=== PATIENT | female | born 1970 | race Caucasian/White ===

== ENCOUNTER 2020-06-04 21:47 | Emergency (ER) | payer OTHER, MEDICAID, SELFPAY ==
[2020-06-04 22:03] VITALS: BP 137/85; PULSE 77; RESP 15; TEMP 36.9; O2SAT 99; BMI 44.6
--- NOTE | 2020-06-04 22:07 | ED_ITS ---
HPI - Skin/Abscess/Foreign Bdy General Chief complaint: Skin/Abscess/Foreign Body Stated complaint: thinks stung by something left upper arm Time Seen by Provider: 06/04/20 22:01 Source: patient Mode of arrival: Ambulatory Limitations: no limitations History of Present Illness HPI narrative: 50-year-old female here for evaluation of which she thinks is a insect sting to the back of her left upper extremity.. Patient states that earlier this evening she was leaving her bathroom when she felt what she thought was a insect sting to the back of her left upper extremity. Since that time she has developed a fairly large area of irritation and redness that is itching of both tender to touch. She has not have any problems breathing. No nausea vomiting. Has never had a reaction like this in the past to any sort of insect sting. Has not tried anything for the symptoms prior to arrival. Related Data Allergies Allergy/AdvReac Type Severity Reaction Status Date / Time latex Allergy Verified 06/04/20 22:14 peanut Allergy Verified 06/04/20 22:14 Sulfa (Sulfonamide AdvReac Diarrhea Verified 06/04/20 22:14 Antibiotics) Review of Systems Constitutional Constitutional: Denies fever(s) and Denies headache(s) ENT Ears, Nose, Mouth, and Throat: Denies headache(s), Denies lip swelling, Denies sinus pressure, Denies sore throat, Denies throat swelling and Denies tongue swelling Cardiovascular Cardiovascular: Denies chest pain and Denies dyspnea Respiratory Respiratory: Denies dyspnea and Denies wheezing Integumentary/Breasts Skin/Breast: Reports pruritus, Reports lesions and Reports skin swelling Neurologic Neurologic: Denies behavioral changes and Denies headache(s) Psychiatric Psychiatric: Denies behavioral changes Hematologic/Lymphatic Hematologic/Lymphatic: Denies easy bleeding and Denies easy bruising Allergic/Immunologic Allergic/Immunologic: Reports urticaria, Denies lip swelling, Denies throat swelling, Denies tongue swelling and Denies wheezing Patient History Medical History (Updated 06/05/20 @ 04:49 by Damian Clemens DO) Asthma (Acute) Healthy adult (Acute) Social History Smoking Status: Never smoker Exam Initial Vital Signs Initial Vital Signs: Vital Signs Temperature 98.5 F 06/04/20 22:03 Pulse Rate 77 06/04/20 22:03 Respiratory Rate 15 06/04/20 22:03 Blood Pressure 137/85 06/04/20 22:03 Pulse Oximetry 99 06/04/20 22:03 Const General: cooperative and comfortable Limitations: mental status not altered HENMT Head: normal to inspection and normocephalic Resp Effort & Inspection: normal respiratory effort Auscultation: clear to auscultation bilaterally Cardio Rate: regular rate Rhythm: regular rhythm Skin Other: Patient with a hand size area of what appears to be a single urticaria on the posterior aspect of her left upper arm. There is minimal surrounding er ythema this area. There are no open wounds noted. Neuro General: patient alert, patient awake and patient oriented x3 Course Orders Ordered: Discontinued Medications Dexamethasone (Decadron) 16 mg PO NOW ONE Stop: 06/04/20 22:08 Last Admin: 06/04/20 22:15 Dose: 16 mg Documented by: CHITRA Diphenhydramine HCl (Benadryl) 25 mg PO NOW ONE Stop: 06/04/20 22:08 Last Admin: 06/04/20 22:16 Dose: 25 mg Documented by: CHITRA Vital Signs Vital signs: Vital Signs - 8 hr 06/04/20 22:03 06/04/20 22:39 Temperature 98.5 F Pulse Rate 77 74 Respiratory Rate 15 16 Blood Pressure 137/85 117/67 Pulse Oximetry 99 98 MDM - Skin/Abscess/Foreign Bdy MDM Narrative Medical decision making narrative: Patient's physical exam is consistent with an allergic reaction that is most likely from an insect given the appearance. Does appear to be 1 single large urticaria. There was low concern for infection. There is also low concern for anaphylaxis. Did discuss this with the patient. We will symptomatically treat for now. Feel patient be safely discharged home. I discussed all this with the patient and her who is at bedside. They were given return precautions. They expressed understanding and agreement. Discharge Plan Departure Patient Disposition: Home Clinical Impression: Urticaria Discharge Date/Time: 06/04/20 22:42 Instructions: DI for General Allergic Reactions Activity Restrictions/Additional Instructions: You can purchase topical anti-itch cream and/or topical steroid cream o [id number] and use over the affected area. You can also take Benadryl by mouth as needed. Return to the emergency department for any new or worsening symptoms
[2020-06-04] MEDS: dexAMETHasone 4 MG TABLET 16 MG PO (22:15)
[2020-06-04] MEDS: diphenhydrAMINE 25 MG TABLET PO (22:16)
[2020-06-04 22:39] VITALS: BP 117/67; PULSE 74; RESP 16; O2SAT 98
== END 2020-06-04 22:42 | disposition home or self-care (01) ==
PROVIDERS: Emergency Provider Emergency Medicine
DX: L50.9 Urticaria, unspecified (principal)
CPT/HCPCS: 99282; 99283

== ENCOUNTER 2021-06-27 18:06 | Emergency (ER) | payer OTHER, MEDICAID, SELFPAY ==
[2021-06-27 18:16] VITALS: BP 147/75; PULSE 62; RESP 16; TEMP 36.7; O2SAT 98
--- NOTE | 2021-06-27 18:19 | DI.RAD.S_ITS ---
PROCEDURE: XR KNEE LT 3V INDICATIONS: left knee, pain with weight bearing. Ramona a pop last night TECHNIQUE: 3 views of the knee were acquired. COMPARISON: None. FINDINGS: Bones: No fractures or dislocations. No suspicious bony lesions. There are mild tricompartmental degenerative changes. Soft tissues: No joint effusion. No suspicious soft tissue calcifications. IMPRESSION: Mild tricompartmental degenerative changes. No acute abnormality of the left knee. Dictated by: Caesar Pacheco M.D. on 06/27/2021 at 18:53 Approved by: Caesar Pacheco M.D. on 06/27/2021 at 18:54
[2021-06-27 21:41] VITALS: BP 168/77; PULSE 89; RESP 20; O2SAT 97
--- NOTE | 2021-06-27 22:47 | ED.LOWEXIN ---
HPI - Extremity Injury (Lower) General Chief Complaint: Extremity Injury, Lower Stated Complaint: Left Knee Pain/Burning Time Seen by Provider: 06/27/21 20:27 Mode of arrival: Ambulatory History of Present Illness HPI Narrative: 51-year-old female nonsmoker with noncontributory medical history presents with a chief complaint of left knee pain suffered with a bending, twisting injury 2 days ago. She felt a pop on her medial joint line and now has pain with ambulation and improvement with rest. She denies any numbness, tingling or weakness but does state that when she ambulates she feels like her knee is unsteady. She denies any history of left knee injury though she has injured her right knee. She has had no chest pain or shortness of breath. She denies any abdominal pain or nausea or vomiting. She has no hip or ankle pain Related Data Allergies Allergy/AdvReac Type Severity Reaction Status Date / Time latex Allergy Verified 06/04/20 22:14 peanut Allergy Verified 06/04/20 22:14 Sulfa (Sulfonamide AdvReac Diarrhea Verified 06/04/20 22:14 Antibiotics) Review of Systems Review of Systems Narrative: GENERAL: Denies chills, fatigue, malaise, fever, sweats. HEENT: Denies sinus pain, ear pain, sore throat, difficulty swallowing, dizziness. RESPIRATORY: Denies dyspnea, cough, wheezing, hemoptysis, sputum. CARDIOVASCULAR: Denies chest pain, palpitations, orthopnea, edema, GASTROINTESTINAL: Denies nausea, vomiting, abdominal pain, diarrhea, constipation, melena. : Denies dysuria, frequency, incontinence, hematuria, urinary retention. MUSCULOSKELETAL: See HPI SKIN: Denies rash, skin lesions, or other NEUROLOGIC: Denies weakness, headache, numbness, change in speech, confusion, seizures, incoordination. PSYCHIATRIC: No concerning psychosocial issues. 12 point review of systems is negative except for those stated above Patient History Medical History Asthma Healthy adult Social History Smoking Status: Never smoker Smoking Status: Never smoker alcohol intake frequency: a few times a month Substance Use Type: does not use Exam Narrative Exam Narrative: GEN: AOx3 and in mild distress EYES: Pupils are equal, round, and reactive to light and accommodation. Extraoccular muscles are intact bilaterally. There is no subconjunctival hemorrhage or exudate. CHEST: Lungs are clear to auscultation bilaterally and free of wheezes, rales, or rhonchi. Heart rate is regular rhythm, there are no murmurs, clicks, rubs, or gallops. There is no chest wall tenderness. ABD: Abdomen is soft and nontender. There is no guarding or rebound. Bowel sounds are normal in all 4 quadrants. There is no mass or organomegaly. EXT: Full but painful range of motion of the left knee with pain on palpation of the medial joint line. There is no obvious deformity or effusion, no significant swelling, redness or warmth. There is no obvious ligamentous instability. SKIN: Warm, pink, and dry. No erythema or rash Initial Vital Signs Initial Vital Signs: Vital Signs Temperature 98.0 F 06/27/21 18:16 Pulse Rate 62 06/27/21 18:16 Respiratory Rate 16 06/27/21 18:16 Blood Pressure 147/75 H 06/27/21 18:16 Pulse Oximetry 98 06/27/21 18:16 Procedures Orthopedic Splinting/Casting Injury #1: Side: left Lower Extremity Injury Location: knee Lower Extremity Immobilizer: knee immobilizer Post splinting neuro exam: intact Post splinting vascular exam: intact Placed by: Nursing Course Orders Ordered: ED Orders 06/27/21 18:19 XR knee LT 3V Stat Vital Signs Vital signs: Vital Signs - 8 hr 06/27/21 21:41 06/27/21 23:11 Pulse Rate 89 64 Respiratory Rate 20 16 Blood Pressure 168/77 H 159/82 H Pulse Oximetry 97 99 MDM - Extremity Injury (Lower) Imaging Data Extremity x-ray #1: Radiologist's Impression: Lyndsay Bennett 51 F [address] [id number] ReportSigned Patient: Lyndsay BennettMR#: [id number]: 1970Acct:[id number]/Sex: 51 / FDate of Service: 06/27/21Loc: EDAccession Number: [id number] Procedure: XR knee LT 3V Ordering Provider: [place],Hayden D.O. PROCEDURE: XR KNEE LT 3V INDICATIONS: left knee, pain with weight bearing. Thorp a pop last night TECHNIQUE: 3 views of the knee were acquired. COMPARISON: None. FINDINGS: Bones: No fractures or dislocations. No suspicious bony lesions. There are mild tricompartmental degenerative changes. Soft tissues: No joint effusion. No suspicious soft tissue calcifications. IMPRESSION: Mild tricompartmental degenerative changes. No acute abnormality of the left knee. Dictated by: Caesar Pacheco M.D. on 06/27/2021 at 18:53 Approved by: Caesar Pacheco M.D. on 06/27/2021 at 18:54 Discharge Plan Departure Patient Disposition: Home Clinical Impression: Left knee sprain Qualifiers: Encounter type: initial encounter Involved ligament of knee: unspecified ligament Qualified Code(s): S83.92XA - Sprain of unspecified site of left knee, initial encounter Instructions: DI for Knee Sprain Activity Restrictions/Additional Instructions: *You have been diagnosed with [left knee sprain, possible meniscal involvement] *What to do: *Please continue to take your regular medications as directed. [ ] New medication prescriptions sent to your pharmacy: [ ] [ ] New medication written as a paper prescription [ x] No new medications given *Please follow up with your primary care provider in 2-3 days, call for an appointment. Let them know you were seen in the Emergency Department and that we ask that you be seen in follow up. We will electronically transmit a record of today's note if your PCP is in our system *If you do not have a primary care provider please contact the [facility] Resource line at [phone]. They will ask some questions about your medical history and help get you set up with a doctor in the community. *Return to Emergency Department if you should have any new, worsening or concerning symptoms, such as [fever greater than 101 F, shaking chills, worsening pain, persistent vomiting or other bothersome symptoms] Referrals: Brandy Spencer MD [Primary Care Provider] - Stand Alone Forms: Work Release Note
[2021-06-27 23:11] VITALS: BP 159/82; PULSE 64; RESP 16; O2SAT 99
== END 2021-06-27 23:12 | disposition home or self-care (01) ==
PROVIDERS: Emergency Provider Emergency Medicine; PCP Internal Medicine Geriatric Medicine
DX: S83.92XA Sprain of unspecified site of left knee, initial encounter (principal); X50.1XXA Overexertion from prolonged static or awkward postures, initial encounter
CPT/HCPCS: 73562; 99283

== ENCOUNTER 2024-05-25 13:31 | Emergency (ER) | payer OTHER, MEDICAID, SELFPAY ==
[2024-05-25 13:42] VITALS: BP 133/66; PULSE 78; RESP 16; TEMP 36.8; O2SAT 96; BMI 49.8
--- NOTE | 2024-05-25 13:46 | DI.RAD.S_ITS ---
PROCEDURE: XR FOOT RT MIN 3V INDICATIONS: pain, popping sensation TECHNIQUE: 3 views of the foot were acquired. COMPARISON: None. FINDINGS: Bones: No fractures or dislocations. No suspicious bony lesions. Prominent plantar calcaneal enthesophytes. Mild hallux valgus angulation of the 1st MTP joint. Soft tissues: No tibiotalar joint effusion. Achilles tendon appears normal. IMPRESSION: No acute osseous abnormality. If pain persists with conservative management, consider repeat x-ray in 10-14 days or cross-sectional imaging. Dictated by: Yrn Interiano M.D. on 05/25/2024 at 13:32 Approved by: Yrn Interiano M.D. on 05/25/2024 at 13:32
--- NOTE | 2024-05-25 14:19 | ED.LOWEXIN ---
HPI - Extremity Injury (Lower) General Chief Complaint: Extremity Injury, Lower Stated Complaint: R Foot Pain Time Seen by Provider: 05/25/24 13:57 Source: patient Mode of arrival: Ambulatory History of Present Illness HPI Narrative: 54-year-old female with complaint of right foot pain onset today. This occurred when she was trying to run upper short distance. She did not fall did not twist her foot. She says she felt something pop when she did this in the middle of her foot. Since then it has been painful to weight bear. She is anticoagulated with Eliquis for atrial fibrillation. Related Data Allergies Allergy/AdvReac Type Severity Reaction Status Date / Time peanut Allergy Anaphylaxis Verified 05/25/24 13:42 latex AdvReac Rash Verified 05/25/24 13:42 Sulfa (Sulfonamide AdvReac Diarrhea Verified 05/25/24 13:42 Antibiotics) Patient History Medical History Asthma Healthy adult Social History Smoking Status: Never smoker Smoking Status: Never smoker alcohol intake frequency: a few times a month Substance Use Type: does not use Exam Initial Vital Signs Initial Vital Signs: Vital Signs Temperature 98.3 F 05/25/24 13:42 Pulse Rate 78 05/25/24 13:42 Respiratory Rate 16 05/25/24 13:42 Blood Pressure 133/66 05/25/24 13:42 Pulse Oximetry 96 05/25/24 13:42 Oxygen Delivery Method Room Air 05/25/24 13:42 Resp Other: Normal respiratory effort Cardio Other: Normal heart rate Skin Other: Warm and dry Extrem Other: Right foot is without discoloration deformity or swelling. Pulses are intact. She is intact capillary refill and sensation. There is some tenderness over the 3rd and 4th rays at the sole of the foot. Course Orders Ordered: ED Orders 05/25/24 13:46 XR foot RT min 3V Stat Vital Signs Vital signs: Vital Signs - 8 hr 05/25/24 13:42 Temperature 98.3 F Pulse Rate 78 Respiratory Rate 16 Blood Pressure 133/66 Pulse Oximetry 96 Oxygen Delivery Method Room Air MDM - Extremity Injury (Lower) Imaging Data Extremity x-ray #1: My Impression: Independent review of right foot x-rays, no fracture or dislocation Radiologist's Impression: Radiology interpretation noted, no acute osseous abnormality MDM Narrative Medical decision making narrative: 54-year-old female with atraumatic right foot pain. Abrupt onset while running, it does not appear that running is something she does often. Does not appear to be cellulitic, no fractures or dislocations, we will make her weight-bearing as tolerated and recommended primary care follow up. Discharge Plan Departure Referrals: Brandy Spencer MD [Primary Care Provider] -
[2024-05-25 15:03] VITALS: BP 127/72; PULSE 72; RESP 16; TEMP 37; O2SAT 95
== END 2024-05-25 15:04 | disposition home or self-care (01) ==
PROVIDERS: Emergency Provider Emergency Medicine; PCP Internal Medicine Geriatric Medicine
DX: M79.671 Pain in right foot (principal); Z79.01 Long term (current) use of anticoagulants
CPT/HCPCS: 73630; 99282; 99283

== ENCOUNTER 2025-08-20 18:13 | Emergency (ER) | payer OTHER, MEDICAID, SELFPAY ==
[2025-08-20 18:17] VITALS: BP 144/67; PULSE 67; RESP 16; TEMP 37.1; O2SAT 99; BMI 48.1
--- NOTE | 2025-08-20 19:07 | DI.RAD.S_ITS ---
PROCEDURE: XR KNEE LT 3V INDICATIONS: knee pain TECHNIQUE: 3 views of the knee were acquired. COMPARISON: [facility], CR, XR KNEE ARTHRITIC SERIES RT, 09/01/2024, 7:33. [facility], CR, XR KNEE LT 3V, 06/27/2021, 18:15. FINDINGS: Bones: No fractures or dislocations. No suspicious bony lesions. Minimal degenerative changes. There is at least moderately sized joint effusion Soft tissues: No joint effusion. No suspicious soft tissue calcifications. IMPRESSION: Significant joint effusion, no focal osseous lesion seen. Dictated by: Edwin Stapleton M.D. on 08/20/2025 at 19:59 Approved by: Edwin Stapleton M.D. on 08/20/2025 at 20:00
[2025-08-20 20:48] VITALS: PULSE 72; O2SAT 99
[2025-08-20 20:49] VITALS: BP 186/82; PULSE 64; O2SAT 98
[2025-08-20 21:00] VITALS: BP 149/60; PULSE 60; O2SAT 98
--- NOTE | 2025-08-20 21:26 | ED.EXTPRO ---
HPI - Extremity Problem General Chief complaint: Extremity Problem,Nontraumatic Stated complaint: L knee weakness Time Seen by Provider: 08/20/25 19:06 Source: patient Mode of arrival: Family Vehicle History of Present Illness HPI Narrative: 55-year-old female seen by mid-level provider with PCP office recently for left knee pain that is been ongoing for the past month where she had mechanical fall but able to bear weight here for further evaluation. She was told by midlevel prior to place icy hot on it but still having significant pain with ambulation. No prior history of left knee pain but actually right knee pain chronically. Other than what is stated 14 point review of system is negative. Related Data Previous Rx's ?Medication ?Instructions ?Recorded diclofenac sodium 75 mg 75 mg PO BID #30 tabs 08/20/25 tablet,delayed release Allergies Allergy/AdvReac Type Severity Reaction Status Date / Time peanut Allergy Anaphylaxis Verified 05/25/24 13:42 latex AdvReac Rash Verified 05/25/24 13:42 Sulfa (Sulfonamide AdvReac Diarrhea Verified 05/25/24 13:42 Antibiotics) Review of Systems Review of Systems ROS Unobtainable: All systems reviewed & are unremarkable except as noted in HPI and below Patient History Medical History Asthma Healthy adult alcohol intake frequency: a few times a month Exam Narrative Exam Narrative: GENERAL: [55] year old patient appears stated age. Well-developed patient, in mild distress. Morbidly obese HEAD: Atraumatic. Normocephalic. EYES: Pupils equal round and reactive. Extraocular motions intact. No scleral icterus. No injection or drainage. ENT: Nose without bleeding, purulent drainage. Throat without erythema, tonsillar hypertrophy or exudate. Airway patent. NECK: Trachea midline. Non tender EXTREMITIES: Left knee moderate supra patella effusion varus valgus anterior posterior drawer Marvin's and Alisa's on negative. Motor sensory intact +2 DP +2 PT cap refill less than 2 seconds BACK: Nontender without deformity or crepitance. No flank tenderness. NEURO: AOx3. SKIN: No rash or erythema of visible areas Initial Vital Signs Initial Vital Signs: Vital Signs Temperature 98.7 F 08/20/25 18:17 Pulse Rate 67 08/20/25 18:17 Respiratory Rate 16 08/20/25 18:17 Blood Pressure 144/67 H 08/20/25 18:17 Pulse Oximetry 99 08/20/25 18:17 Oxygen Delivery Method Room Air 08/20/25 18:17 Course Orders Ordered: ED Orders 08/20/25 19:07 XR knee LT 3V Stat Vital Signs Vital signs: Vital Signs - 8 hr 08/20/25 18:17 08/20/25 20:48 08/20/25 20:49 Temperature 98.7 F Pulse Rate 67 72 Respiratory Rate 16 Blood Pressure 144/67 H 186/82 H Pulse Oximetry 99 99 Oxygen Delivery Method Room Air 08/20/25 20:49 08/20/25 21:00 08/20/25 21:00 Temperature Pulse Rate 64 60 Respiratory Rate Blood Pressure 149/60 H Pulse Oximetry 98 98 Oxygen Delivery Method MDM - Extremity (Nontraumatic) Imaging Data Extremity x-ray #1: Radiologist's Impression: [address] [address] XRay Report Signed Patient: Lyndsay Bennett MR#: [id number] : 1970 Acct:[id number] Age/Sex: 55 / F Date of Service: 08/20/25 Loc: ED Accession Number: [id number] Procedure: XR knee LT 3V Ordering Provider: Max Peters D.O. PROCEDURE: XR KNEE LT 3V INDICATIONS: knee pain TECHNIQUE: 3 views of the knee were acquired. COMPARISON: [facility], CR, XR KNEE ARTHRITIC SERIES RT, 09/01/2024, 7:33. [facility], , XR KNEE LT 3V, 06/27/2021, 18:15. FINDINGS: Bones: No fractures or dislocations. No suspicious bony lesions. Minimal degenerative changes. There is at least moderately sized joint effusion Soft tissues: No joint effusion. No suspicious soft tissue calcifications. IMPRESSION: Significant joint effusion, no focal osseous lesion seen. [facility] Narrative Medical decision making narrative: Vital signs, nurse triage note, medication list, previous ER visits, and all imaging studies reviewed. Xray reviewed - significant joint effusion, no focal osseous lesion seen. Patient given ibuprofen and [place] here. And will be discharged diclofenac prescription and to follow up with [facility] referral. Differential diagnosis includes arthritis, dislocation, fracture, ligament strain, meniscal injury. Discharge Plan Departure Patient Disposition: Home Clinical Impression: Acute knee pain, Acute joint effusion Instructions: DI for Knee Pain Activity Restrictions/Additional Instructions: Return with new or worsening symptoms. Follow up with [facility] referral. Take medicine as directed. Prescriptions: New diclofenac sodium 75 mg tablet,delayed release (DR/EC) 75 mg PO BID Qty: 30 0RF Referrals: Brandy Spencer MD [Primary Care Provider, Medical] Stand Alone Forms: Patient Portal/API
[2025-08-20 21:33] VITALS: PULSE 74; O2SAT 93
== END 2025-08-20 21:48 | disposition home or self-care (01) ==
PROVIDERS: Emergency Provider Family Medicine; PCP Internal Medicine Geriatric Medicine
DX: M25.462 Effusion, left knee (principal); M25.562 Pain in left knee
CPT/HCPCS: 73562; 99283